=== PATIENT | female | born 1995 ===

== ENCOUNTER 2018-02-24 22:21 | Inpatient (IN) | payer SELFPAY ==
[2018-02-24 23:54] VITALS: BMI 27.6
[2018-02-24] MEDS ORDERED: Lactated Ringer's 1,000 ML IV ONE (23:54)
[2018-02-25] MEDS ORDERED: Penicillin G Potassium 5 MU in Sodium Chloride 0.9% 50 ML IVPB ONE
[2018-02-25] MEDS ORDERED: Oxytocin 30 units/LR 500ML 30 U/500 ML BAG IV ONE (01:21)
[2018-02-25 01:59] LABS: BASO # 0.1 K/uL (0.0-0.2); BASO % 0.5 % (0.0-2.0); EOS # 0.1 K/uL (0.0-0.7); EOS % 0.6 % (0.0-4.0); HEMOGLOBIN 11.9 g/dL (12.0-16.0); LYMPH # 3.1 K/uL (1.0-4.3); LYMPH % 25.8 % (20.0-40.0); MEAN CELL VOLUME 94.4 fl (81.0-99.0); MEAN CORPUSCULAR HEMOGLOBIN 31.7 pg (27.0-31.0); MEAN CORPUSCULAR HGB CONC 33.6 g/dL (33.0-37.0); MEAN PLATELET VOLUME 9.5 fl (7.2-11.7); MONO # 0.9 K/uL (0.0-0.8); MONO % 7.6 % (0.0-10.0); NEUT # 7.8 K/uL (1.8-7.0); NEUT % 65.5 % (50.0-75.0); NRBC % 0.2 % (0.0-0.0); RBC 3.75 Mil/uL (3.80-5.20); RED CELL DISTRIBUTION WIDTH 13.7 % (11.5-14.5); WHITE BLOOD COUNT 11.9 K/uL (4.8-10.8)
[2018-02-25] MEDS ORDERED: Penicillin G 5 Million Unit Vial IVPB ONE (02:00)
[2018-02-25 02:18] VITALS: O2SAT 100
[2018-02-25] MEDS ORDERED: Lidocaine Hydrochloride 20 ML INJ ONE (09:41)
[2018-02-25] MEDS: OXYTOCIN/0.9 % NS 20 UNIT/1,000 ML BAG IV SCH ×2 (10:25)
[2018-02-25] MEDS ORDERED: Benzocaine/Menthol SPRAY ONE (11:21)
[2018-02-25] MEDS ORDERED: Benzocaine/Menthol SPRAY TOP PRN (13:16)
[2018-02-25 18:25] LABS: RAPID PLASMA REAGIN NONREACTIVE (NONREACTIVE)
[2018-02-26 06:55] LABS: BASO % 0.3 % (0.0-2.0); EOS # 0.1 K/uL (0.0-0.7); EOS % 0.6 % (0.0-4.0); HEMOGLOBIN 11.3 g/dL (12.0-16.0); LYMPH # 2.9 K/uL (1.0-4.3); LYMPH % 19.7 % (20.0-40.0); MEAN CELL VOLUME 95.6 fl (81.0-99.0); MEAN CORPUSCULAR HEMOGLOBIN 32.1 pg (27.0-31.0); MEAN CORPUSCULAR HGB CONC 33.5 g/dL (33.0-37.0); MEAN PLATELET VOLUME 9.2 fl (7.2-11.7); MONO # 1.2 K/uL (0.0-0.8); MONO % 8.4 % (0.0-10.0); NEUT # 10.4 K/uL (1.8-7.0); RBC 3.52 Mil/uL (3.80-5.20); RED CELL DISTRIBUTION WIDTH 13.8 % (11.5-14.5); WHITE BLOOD COUNT 14.6 K/uL (4.8-10.8)
--- NOTE | 2018-02-26 08:53 | OBDS ---
DELIVERY PERSONNEL Delivery Doctor: Marcela Pacheco MD Pilot Safety Inspector: Arianna Vieyra RN Resident: Nat Daniels MD _ Lopez, C., MD MATERNAL INFORMATION Delivery Anesthesia: None Medications in Delivery: Pitocin Estimated Blood Loss (ml): 200 Placenta Cultured: No Maternal Complications: None RN Comments: Atraumatic of a viable babyboy with Lusty Cry infant tolerated delivery well. Ski n to skin initiaed 9/9 APGARs assigned. Patient tolerated delivery well with 1' degre periurthral la ceration. and Patient recoverying well. Provider Comments: At 9:30 this 23yo G2 Now P2 delivered vaginally with no epidural used. Infant was suctioned with bulb on the perineum. The was placed on the pt abdomen after delivery. cord wa s clamped and cut by father. placenta was delivered intact with normal 3 vessel cord. Perineal grade 1 laceration was noted, stiches were done, no other complication. Male infant 7lb score of 9/9 both mom and infant are recovering well. Dr Smith attending , Dr Amanda the fellow, Dr. Daniels PGY 1 LABOR SUMMARY EDC: 02/23/2018 00:00 No. Babies in Womb: 1 Attempted: No Labor Anesthesia: None LABOR INFORMATION Reason for Induction: Not Applicable Onset of Labor: 02/24/2018 07:00 Complete Dilatation: 02/25/2018 09:30 Oxytocin: N/A Group B Beta Strep: Positive Antibiotics # of Doses: 2 Antibiotics Time of Last Dose: 06:05 Steroids Given: None Reason Steroids Not Administered: Not Applicable Other Reason Not Administered: Not required MEMBRANES Membranes Rupture Method: Artificial Rupture of Membranes: 02/25/2018 09:00 Length of Rupture (hrs): 0.82 Amniotic Fluid Color: Clear Amniotic Fluid Amount: Small Amniotic Fluid Odor: Normal STAGES OF LABOR Stage 1 hrs: 26 Stage 1 min: 30 Stage 2 hrs: 0 Stage 2 min: 19 Stage 3 hrs: 0 Stage 3 min: 6 Total Time in Labor hrs: 26 Total Time in Labor min: 55 VAGINAL DELIVERY Episiotomy: None Laceration Extension: First Degree Laceration Type: Perineal; Periurethral Laceration Repair: Yes Laceration Repair Note: First-degree midline peroneal laceration, a first-degree periurethral lacera tion. Area was infiltrated with 1% lidocaine. Lacerations repaired with 2. 0 repeat without complicat ion. Initial Vag Sponge Count: 15 Final Vag Sponge Count: 15 Initial Vag Sharps Count: 2 Final Vag Sharps Count: 2 Sponge Count Correct: Yes Sharps Count Correct: Yes BABY A INFORMATION Infant Delivery Date/Time: 02/25/2018 09:49 Method of Delivery: Vaginal Born in Route : No : N/A Forceps: N/A Vacuum Extraction: N/A Shoulder Dystocia : No SHOULDER DYSTOCIA BABY A Delivery Date/Time: 02/25/2018 09:49 PRESENTATION/POSITION BABY A Presentation: Cephalic Cephalic Presentation: Vertex Vertex Position: Left Occipital Anterior Breech Presentation: N/A PLACENTA INFORMATION BABY A Placenta Delivery Time : 02/25/2018 09:55 Placenta Method of Delivery: Spontaneous Placenta Status: Delivered SCORES BABY A Heart Rate 1 min: >100 bpm Resp Effort 1 min: Good Cry Reflex Irritability 1 min: Cough or Sneeze or Pulls Away Muscle Tone 1 min: Active Motion Color 1 min: Body Kayenta, Extremities Blue Resuscitation Effort 1 min: N/A SCORE 1 MIN: 9 Heart Rate 5 min: >100 bpm Resp Effort 5 min: Good Cry Reflex Irritability 5 min: Cough or Sneeze or Pulls Away Muscle Tone 5 min: Active Motion Color 5 min: Body Kayenta, Extremities Blue Resuscitation Effort 5 min: N/A SCORE 5 MIN: 9 INFANT INFORMATION BABY A Gestational Age at Delivery: 40.0 Gestational Status: Term Outcome : Liveborn Infant Condition : Stable Infant Sex: Male WEIGHT/LENGTH BABY A Birthweight (gms): 3455 Weight (lb): 7 Weight (oz): 10 CORD INFORMATION BABY A No. Cord Vessels: 3 Nuchal Cord : N/A Cord Blood Taken: N/A Suction: Mouth; Nose ASSESSMENT BABY A Infant Complications: None Physical Findings at Delivery: Within Normal Limits Infant Respirations: Appears Normal Mold Release Worker/ALS Called : No Care By: Natasha Vieyra Transferred To: Remains with Mother
--- NOTE | 2018-02-26 12:48 | OBPPN ---
Datetime: 02/26/2018 06:51 PP Impression Prov: Normal progression PP Plan Prov: Continue present management PP Progress Note Prov: S: 23 y/o , s/p PPD1 today, seen and examined at bedside. Patient del rosario d uneventful overnight. Patient reports mild pelvic pain controlled w/pain meds. Reports getting OOB/ Ambulating w/o dizziness. Breast/bottle feeding w/o difficulty. Tolerating PO diet well. Lochia is l cynthia menses in volume. Voiding freely w/ no blood noted. No bowel movement yet, reports passing gas p er rectum. Denies fevers, chills, n/v/d, CP/SOB, lightheadedness and calf pain. O: BP 122/59 HR 67 T 98 Physical exam Gen: NAD Resp: cta b/l CV: normal S1S2, RRR Abd: soft, +BS, nontender, firm fundus below umbilicus. Ext: no edema, no calf tenderness Neuro/psych: AAOx3, no gross deficits, preserved mood and affect Assessment: 23 y/o s/p on 02/25/18 @ 9:30AM, tolerating pain w/ medication, tolerating ora l intake, adequate urine output, doing well on PPD1. Plan: -Ibuprofen 600 mg 1 tab Q6h PO prn for mild pain. -Encourage breast feeding and ambulation. -Anticipated D/C for tomorrow Case discussed with attending Dr Tara Ayala M.D PGY1 [facility] on-call. On rounds I saw and examined this patient. Agree wtih PGY1 note [facility] H/H Vital Signs Provider PP: Reviewed
[2018-02-27 20:10] VITALS: BP 127/70; PULSE 72; RESP 20; TEMP 98.2
--- NOTE | 2018-02-28 01:21 | OBPPN ---
Datetime: 02/27/2018 11:18 PP Pain Prov: Within normal limits PP Nausea Prov: Denies PP Flatus Prov: Yes PP Breasts Prov: Normal PP Heart Prov: Normal PP Lungs Prov: Normal PP Abdomen/Uterus Prov: Normal PP Lochia Prov: Normal PP Vulva/Perineum Prov: Normal PP CVA Tenderness Prov: Normal PP Extremities Prov: Normal PP Comments Phys Exam Prov: Abd: Soft, NT , BS- present UT- Firm PP Impression Prov: Normal progression PP Plan Prov: Discharge PP Progress Note Prov: S/P , Clinically Stable. Plan: D/C Home IP PP Procedures: None Vital Signs Provider PP: Reviewed
--- NOTE | 2018-02-28 01:21 | OBDCSUM ---
Datetime: 02/27/2018 13:40 Discharged to, Provider: Home Follow up at, Provider: Disch Instr Activity: Normal activity; May be up to bathroom; May be up for meals; May Shower Disch Instr Diet: Regular Discharge Instructions, Provider: Routine instructions given Discharge Diagnosis, Provider: Term Delivered Discharge Time: 02/27/2018 14:00 Follow up in weeks, Provider: 5 to 6 weeks Disch Referrals: None Contraception discussed, Prov: Yes Disch Activity Restrictions: No lifting; No sexual activity; Nothing in vagina - [place], tampon s douche Discharge Comment, Provider: Uncomplicated , Clinically Stable Discharge Diagnosis Prov Other: Uncomplicated , Clinically Stable
== END 2018-02-27 14:20 | disposition home or self-care (01) | DRG 373 ==
LOC: H.EROB2 22:21 → H.L&D 23:56 → H.OB/GYN 02-25 12:29
PROVIDERS: ADMIT Obstetrics & Gynecology Gynecology; ATTEND Obstetrics & Gynecology Gynecology
PROC: 4A1HXCZ Monitoring of Products of Conception, Cardiac Rate, External Approach (ICD-10-PCS; 2018-02-24)
PROC: 0HQ9XZZ Repair Perineum Skin, External Approach (ICD-10-PCS; principal; 2018-02-25)
PROC: 10E0XZZ Delivery of Products of Conception, External Approach (ICD-10-PCS; 2018-02-25)
DX: O70.0 First degree perineal laceration during delivery (principal); Z37.0 Single live birth; Z3A.40 40 weeks gestation of pregnancy